=== PATIENT | female | born 1990 | race Caucasian/White ===

== ENCOUNTER 2016-09-28 12:43 | Emergency (ER) | payer OTHER ==
[~2016-09-28] VITALS: Ht 167.6 cm; Wt 69.0 kg
[2016-09-28 12:49] VITALS: BP 114/71; PULSE 104; RESP 16; TEMP 98.5; O2SAT 97
[2016-09-28] MEDS ORDERED: DICL50TA3 PO (13:20)
[2016-09-28] MEDS ORDERED: ROBA750T PO (13:20)
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
[2016-09-28] MEDS ORDERED: KETOROLAC TROMETHAMINE 60 MG/2 ML (IM) VIAL IM ONE (13:30)
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
== END 2016-09-28 15:31 | disposition home or self-care (01) ==
LOC: PHEFT 12:43
DX: S16.1XXA Strain of muscle, fascia and tendon at neck level, initial encounter (principal); M62.838 Other muscle spasm; R20.2 Paresthesia of skin; J45.909 Unspecified asthma, uncomplicated; V43.52XA Car driver injured in collision with other type car in traffic accident, initial encounter; Y99.8 Other external cause status
CPT/HCPCS: 72050; 96372; 99283; J1885